=== PATIENT | female | born 1975 | race Caucasian/White ===

== ENCOUNTER → 2022-03-25 | Outpatient (CLI) | payer OTHER, SELFPAY ==
[2022-03-27 10:46] LABS: Cancer Antigen 125 9.4 U/mL (0.0-38.1); Carcinoembryonic Antigen 6.2 ng/mL (0.0-4.7)
== END | disposition home or self-care (01) ==
LOC: LAB 15:07
PROVIDERS: PCP Physician Assistant; Visit Provider Obstetrics & Gynecology
DX: N83.8 Other noninflammatory disorders of ovary, fallopian tube and broad ligament (principal)
CPT/HCPCS: 36415; 82378; 86304